=== PATIENT | female | born 1930 | race Hispanic/Latino ===

== ENCOUNTER 2019-01-07 18:01 | Emergency (ER) | payer MEDICARE ==
[2019-01-07 18:24] VITALS: BP 154/75
--- NOTE | 2019-01-07 19:28 | Emergency Department Report ---
ED Headache HPI - General Chief Complaint: Medical Clearance Stated Complaint: FACIAL PAIN Time Seen by Provider: 01/07/19 18:23 - History of Present Illness Initial Comments: Patient is a 8-year-old female who is presenting with left-sided headache for the past to 3 weeks. Patient has been to [facility] 3 times in the last 10 days for some increased pain in the left face that shoots into the first trigeminal region. There are no rashes present cord to the patient. Patient does have a neurologist who has artery diagnosed her with trigeminal neuralgia and who states that he may end up doing some type of surgery for this problem. Patient is on Tegretol. Patient had episode of several seconds of shooting pain earlier today. The patient's states that she believes she needs some IV fluids or antibiotics. Patient is afebrile. Patient is pain-free at this time. Patient is states is no nausea vomiting diarrhea fevers chills next of sore throat cough cold congestion. Allergies/Adverse Reactions: Allergies Penicillins Allergy (Verified 05/05/14 13:30) Hives red dye Allergy (Verified 05/05/14 13:30) Hives Home Medications: Ambulatory Orders Alendronate Sodium 70 mg PO 1XW 05/06/14 Baclofen 10 mg PO DAILY 05/06/14 Lovastatin [Altoprev] 40 PO DAILY 05/06/14 amLODIPine [Norvasc] 5 mg PO DAILY 05/06/14 levoFLOXacin [Levaquin TAB] 500 mg PO QDAY #10 tablet 05/07/14 oxyCODONE /ACETAMINOPHEN [Percocet 5/325 mg] 1 tab PO Q6H PRN #10 tablet 05/07/14 Butalb/Acetamin/Caff 50-325-40 [Fioricet 50-325-40] 1 tab PO Q8HR PRN #10 tablet 01/07/19 ED Review of Systems ROS: Stated complaint: FACIAL PAIN Other details as noted in HPI Comment: All other systems reviewed and negative ED Past Medical Hx - Past Medical History Previous Medical History?: Yes Hx Hypertension: Yes Additional medical history: trigeminal neuralgia - Surgical History Past Surgical History?: Yes Hx Cholecystectomy: Yes Additional Surgical History: tubal ligation. hip surgery - Social History Smoking Status: Never Smoker Substance Use Type: None - Medications Home Medications: Home Medications Medication Instructions Recorded Confirmed Last Taken Type Alendronate Sodium 70 mg PO 1XW 05/06/14 05/06/14 Unknown History Baclofen 10 mg PO DAILY 05/06/14 05/06/14 Unknown History Lovastatin [Altoprev] 40 PO DAILY 05/06/14 05/06/14 Unknown History amLODIPine [Norvasc] 5 mg PO DAILY 05/06/14 05/06/14 Unknown History levoFLOXacin [Levaquin TAB] 500 mg PO QDAY #10 tablet 05/07/14 Unknown Rx oxyCODONE /ACETAMINOPHEN [Percocet 1 tab PO Q6H PRN #10 tablet 05/07/14 Unknown Rx 5/325 mg] Butalb/Acetamin/Caff 50-325-40 1 tab PO Q8HR PRN #10 tablet 01/07/19 Unknown Rx [Fioricet 50-325-40] ED Physical Exam - General Limitations: No Limitations General appearance: alert, in no apparent distress - Head Head exam: Present: atraumatic, normocephalic - Eye Eye exam: Present: normal appearance, PERRL, EOMI, other (NO TEMPORAL TENDERNESS) - ENT ENT exam: Present: mucous membranes moist - Neck Neck exam: Present: normal inspection - Respiratory Respiratory exam: Present: normal lung sounds bilaterally, wheezes, rales, rhonchi. Absent: respiratory distress - Cardiovascular Cardiovascular Exam: Present: regular rate, normal rhythm, normal heart sounds. Absent: systolic murmur, diastolic murmur, rubs, gallop - GI/Abdominal GI/Abdominal exam: Present: soft, normal bowel sounds. Absent: distended, tenderness, guarding, rebound - Extremities Exam Extremities exam: Present: normal inspection - Back Exam Back exam: Present: normal inspection - Neurological Exam Neurological exam: Present: alert, oriented X3, CN II-XII intact, normal gait. Absent: motor sensory deficit - Psychiatric Psychiatric exam: Present: normal affect, normal mood - Skin Skin exam: Present: warm, dry, intact, normal color. Absent: rash ED Course Vital Signs 01/07/19 01/07/19 01/07/19 18:16 18:58 19:00 Temperature 98.2 F 98.2 F Pulse Rate 69 69 Respiratory 20 20 20 Rate Blood Pressure 154/75 Blood Pressure 154/75 154/75 [Left] O2 Sat by Pulse 96 96 96 Oximetry ED Medical Decision Making - Medical Decision Making ESR was done just to ensure that this is not atypical presentation of giant cell arteritis. Patient likely does have trundle neuralgia but could also possibly have cluster headaches. Since this is a long-standing issue that is now been present for several weeks. Patient to be given a prescription for several pills of Fioricet. Patient will follow-up with her neurologist. She has an appointment for 2 days from now. Critical care attestation.: If time is entered above; I have spent that time in minutes in the direct care of this critically ill patient, excluding procedure time. ED Disposition Clinical Impression: Trigeminal nerve disorder Disposition: DC- TO HOME OR SELFCARE Is pt being admited?: No Does the pt Need Aspirin: No Condition: Stable Instructions: Trigeminal Neuralgia (ED) Prescriptions: Butalb/Acetamin/Caff 50-325-40 [Fioricet 50-325-40] 1 tab PO Q8HR PRN #10 tablet PRN Reason: Headache Time of Disposition: 19:28
== END 2019-01-07 19:49 | disposition home or self-care (01) ==
LOC: ED 18:01
DX: G50.9 Disorder of trigeminal nerve, unspecified (principal); I10 Essential (primary) hypertension; Z90.49 Acquired absence of other specified parts of digestive tract; Z98.51 Tubal ligation status; Z79.899 Other long term (current) drug therapy; Z88.0 Allergy status to penicillin; Z91.041 Radiographic dye allergy status
CPT/HCPCS: 36415; 85652; 99284